=== PATIENT | male | born 1975 | race American Indian/Alaskan Native ===

== ENCOUNTER 2016-12-14 12:16 | Emergency (ER) | payer OTHER ==
[2016-12-14 12:36] VITALS: BP 142/91; PULSE 74; RESP 18; TEMP 98.4; O2SAT 100
--- NOTE | 2016-12-14 13:17 | C.PDOC ---
History Of Present Illness 41 y/o male presents to ED for evaluation after dog bite to lower extremities 3 days ago. Pt states that the forensic psychiatrist of the dog didnt hold on the leash when the dog bit him. Otherwise, denies any pain, swelling, redness, discharge, or fever. Pt is not up to date with Tetanus vaccination. Time Seen by Provider: 12/14/16 12:56 Chief Complaint (Nursing): Bite History Per: Patient History/Exam Limitations: no limitations Onset/Duration Of Symptoms: Days (3) Current Symptoms Are (Timing): Still Present Location Of Injury: Right: Leg, Left: Leg Quality Of Symptoms: denies: Painful, Itching, Swollen, Draining Recent travel outside of the [place]: No Additional History Per: Patient Past Medical History Reviewed: Historical Data, Nursing Documentation, Vital Signs Vital Signs: Last Vital Signs Temp 98.4 F 12/14/16 12:32 Pulse 74 12/14/16 12:32 Resp 18 12/14/16 12:32 BP 142/91 H 12/14/16 12:32 Pulse Ox 100 12/14/16 14:44 Family History: States: Unknown Family Hx - Social History Hx Alcohol Use: No Hx Substance Use: No - Immunization History Hx Tetanus Toxoid Vaccination: No Hx Influenza Vaccination: No Hx Pneumococcal Vaccination: No Review Of Systems Except As Marked, All Systems Reviewed And Found Negative. Constitutional: Negative for: Fever, Chills Musculoskeletal: Negative for: Leg Pain Skin: Positive for: Other (dog bite to lower extremities) Neurological: Negative for: Weakness, Numbness Physical Exam - Physical Exam Appears: Non-toxic, No Acute Distress Skin: Warm, Dry, Other (multiple healing puncture wound with surrounding ecchymosis to bilateral lower extremities, no erythema or discharge) Head: Atraumatic, Normacephalic Eye(s): bilateral: Normal Inspection, EOMI Nose: Normal Oral Mucosa: Moist Chest: Symmetrical Respiratory: No Accessory Muscle Use Extremity: Normal ROM, No Tenderness, Capillary Refill (<2 sec.), No Deformity, No Swelling Extremity: Bilateral: Normal Color And Temperature, Normal ROM Pulses: Left Dorsalis Pedis: Normal, Right Dorsalis Pedis: Normal Neurological/Psych: Oriented x3, Normal Speech, Normal Motor, Normal Sensation Gait: Steady ED Course And Treatment O2 Sat by Pulse Oximetry: 100 (on RA) Pulse Ox Interpretation: Normal Progress Note: Pt was given Tetanus vaccination. Pt was instructed on wound care , and to watch for signs of infection. Pt is being discharged home with instructions to follow up with PMD in 1-2 days for further evaluation. Disposition - Disposition Disposition: HOME/ ROUTINE Disposition Time: 13:15 Condition: STABLE Additional Instructions: Follow up with animal control. Watch for signs of infection including redness, swelling and discharge. Follow up with PMD in 1-2 days for re-evaluation. Prescriptions: Amoxicillin/Clavulanate [Augmentin 875 MG-125 MG] 1 tab PO BID #10 tab Instructions: Animal Bite (ED) Forms: [employer] (Indonesian), Work Excuse - Clinical Impression Clinical Impression: Animal bite wound - PA / [employer] / Resident Statement MD/DO has reviewed & agrees with the documentation as recorded. - Scribe Statement The provider has reviewed the documentation as recorded by the Scribe Sohail Quintero All medical record entries made by the Peytonibgood were at my direction and personally dictated by me. I have reviewed the chart and agree that the record accurately reflects my personal performance of the history, physical exam, medical decision making, and the department course for this patient. I have also personally directed, reviewed, and agree with the discharge instructions and disposition.
== END 2016-12-14 13:37 | disposition home or self-care (01) ==
LOC: C.ER 12:16
DX: S81.852A Open bite, left lower leg, initial encounter (principal); S81.851A Open bite, right lower leg, initial encounter; W54.0XXA Bitten by dog, initial encounter; Z23 Encounter for immunization